=== PATIENT | female | born 1945 | race Caucasian/White ===

== ENCOUNTER 2018-05-29 14:47 | Outpatient (CLI) | payer OTHER | END 2018-05-29 14:50 | disposition home or self-care (01) | LOC: MAMO-SONO 14:47 | DX: Z12.31 Encounter for screening mammogram for malignant neoplasm of breast (principal); Z87.898 Personal history of other specified conditions; N64.4 Mastodynia; N20.0 Calculus of kidney ==

== ENCOUNTER 2024-03-01 10:51 | Outpatient (CLI) | payer OTHER | END 2024-03-01 11:04 | disposition home or self-care (01) | LOC: MAMO-SONO 10:51 | PROVIDERS: ATTEND Obstetrics & Gynecology | DX: D48.61 Neoplasm of uncertain behavior of right breast (principal); D48.62 Neoplasm of uncertain behavior of left breast; Z12.31 Encounter for screening mammogram for malignant neoplasm of breast ==